=== PATIENT | female | born 1930 | race African-American/Black ===

== ENCOUNTER 2017-05-07 19:26 | Emergency (ER) | payer MEDICARE, OTHER ==
[2017-05-07 20:47] LABS: Troponin I 0.032 ng/mL (< 0.028)
[2017-05-08] MEDS ORDERED: methylPREDNISolone Sod Succ/PF 125 MG/2 ML VIAL ONE (01:19)
[2017-05-08] MEDS ORDERED: Azithromycin 250 MG TAB PO SCH (01:30)
--- NOTE | 2017-05-10 12:53 | EKG ---
Test Reason : Blood Pressure : / mmHG Vent. Rate : 074 BPM Atrial Rate : 074 BPM P-R Int : 182 ms QRS Dur : 116 ms QT Int : 414 ms P-R-T Axes : 052 -61 022 degrees QTc Int : 459 ms Normal sinus rhythm Left axis deviation Incomplete right bundle branch block Abnormal ECG Confirmed by LATRICIA ROMERO ([id number]), purchase request editor DENZEL THOMPSON ([id number]) on 05/10/2017 12:53:05 PM Referred By: Confirmed By:LATRICIA ROMERO
== END 2017-05-08 02:02 | disposition home or self-care (01) ==
LOC: ERS 19:26
DX: J40 Bronchitis, not specified as acute or chronic (principal); J44.9 Chronic obstructive pulmonary disease, unspecified; Z79.899 Other long term (current) drug therapy
CPT/HCPCS: 36415; 93005; 94760; 96374; J2930